=== PATIENT | female | born 1970 | race American Indian/Alaskan Native ===

== ENCOUNTER 2023-12-30 15:04 | Emergency (ER) | payer OTHER, SELFPAY ==
[2023-12-30] VITALS (19 sets, daily range): BP systolic 127–149; BP diastolic 78–101; PULSE 65–89; RESP 11–25; TEMP 37.2; O2SAT 95–100
--- NOTE | ~2023-12-30 | CT_ITS ---
CT abdomen pelvis wo con Ordering provider: Cinthia Barrios PA-C History: 53 years Female with . abd pain, N/V, recent hernia repair/bowel obst . Comparison: September 02, 2013 Technique: CT abdomen and pelvis without IV and without oral contrast. Radiation reduction technique utilized. The DLP is 216.78 mGy. Findings: VISUALIZED LOWER CHEST: Right lower lobe nodule laterally measuring 5 mm. Otherwise normal. UPPER ABDOMINAL ORGANS: Liver: Slight hepatomegaly. Gallbladder: Status post cholecystectomy. Spleen: Normal. Stomach/duodenum: Normal. Pancreas: Normal. Adrenals: Normal. Kidneys: Normal. PELVIC ORGANS: The bladder is normal. BOWEL AND MESENTERY: Colon: No evidence of diverticulitis. Fecal material is loaded in the colon suggestive of constipatio n. Status post cholecystectomy. Small Bowel: Normal. No obstruction. Peritoneum/mesentery: No free air or free fluid. No mesenteric lymphadenopathy. RETROPERITONEUM: Mild atheromatous disease of the abdominal aorta. No retroperitoneal lymphadenopat hy. MUSCULOSKELETAL: Superficial soft tissues: Postoperative changes in the area of the umbilicus with minimal fluid colle ction and air bubble measuring 3.6 x 0.7 cm. otherwise, The superficial soft tissues are normal. Bones: Normal spine. IMPRESSION: 1. Right lower lobe nodule unchanged from previous examination. 2. Postoperative changes in the area of the umbilicus with a small collection. Abscess is possible. 3. Constipation. 4. Hepatomegaly. Reviewed, dictated and finalized at location A.
[2023-12-30 15:35] LABS: Basophils Percent Auto 0.5 % (0.2-1.2); Eosinophils Absolute Auto 0.2 K/mm3 (0-0.3); Hematocrit 34.9 % (37.0-47.0); Hemoglobin 11.3 g/dL (12.0-15.0); Immature Granulocyte Absolute 0.03 K/mm3 (0.00-0.031); Immature Granulocyte Percent A 0.5 % (0-0.5); Lymphocytes Absolute Auto 1.29 K/mm3 (0.9-3.2); Lymphocytes Percent Auto 23.1 % (18.3-44.2); Mean Corpuscular HGB Conc 32.4 g/dl (32-36); Mean Corpuscular Hemoglobin 29.4 pg (26-34); Mean Corpuscular Volume 90.6 fl (80-100); Mean Platelet Volume 9.8 fl (7.4-10.4); Monocytes Absolute Auto 0.3 K/mm3 (0.1-0.6); Monocytes Percent Auto 5.4 % (2.6-8.5); Neutrophils Absolute Auto 3.8 K/mm3 (1.3-6.7); Neutrophils Percent Auto 67.5 % (45.5-73.1); Platelet Count Result 300 k/mm3 (150-375); Red Blood Count 3.85 M/mm3 (4.2-5.4); White Blood Count 5.6 K/mm3 (4.5-10.0)
[2023-12-30 15:52] LABS: Appearance Urine Clear (Clear); Bilirubin Urine Negative (Negative); Blood Urine Negative (Negative); Color Urine Yellow (Yellow); Glucose Urine UA Negative (Negative); Ketones Urine Trace mg/dL (Negative); Leukocyte Esterase Ur Negative LEU/UL (Negative); Nitrate Urine Negative (Negative); Protein Urine Negative (Negative); Specific Grav Ur 1.024 (1.001-1.035); Urobilinogen Urine 0.2 mg/dL (<2.0); pH Urine 6.5 (5.0-9.0)
[2023-12-30 15:53] LABS: Add Urine Microscopic? NO
[2023-12-30 15:56] LABS: Alanine Aminotransferase 8 U/L (6-35); Albumin Level 3.8 g/dL (3.5-5.1); Alkaline Phosphatase 71 U/L (38-126); Anion Gap 5 mmol/L (4-12); Aspartate Amino Transferase 29 U/L (14-36); Bilirubin,Total 0.4 mg/dL (0.2-1.3); Blood Urea Nitrogen 16 mg/dL (7-17); Calcium 8.5 mg/dL (8.4-10.2); Carbon Dioxide 28 mmol/L (22-30); Chloride 105 mmol/L (98-107); Estimated CRCL calculation 57 ml/min; Estimated Glomerular Filt Rate > 60; Glucose 127 mg/dL (65-110); Lipase 58 U/L (23-300); Potassium 4.1 mmol/L (3.4-5.0); Sodium 138 mmol/L (137-145)
[2023-12-30] MEDS: SODIUM CHLORIDE 0.9% IV 1,000 ML 999 ML IV CONT (16:21)
--- NOTE | 2023-12-30 16:23 | PC.NURSE ---
Pt stated having more than 4mg of zofran in 6 hours will give her a headache. Pt refuses zofran.
[2023-12-30 16:38] LABS: Lactic Acid Reflex 0.9 mmol/L (0.7-2.0)
--- NOTE | 2023-12-30 17:19 | ED.ABDPAIN ---
HPI - Abdominal Pain General Chief Complaint: Abdominal Pain <SATHYA Chisholm Last Filed: 12/30/23 19:31> Stated Complaint: abd pain <SATHAY Chisholm Last Filed: 12/30/23 19:31> Time Seen by Provider: 12/30/23 15:10 <Cinthia Barrios PA-C - Last Filed: 12/30/23 19:31> Source: patient <SATHYA Chisholm Last Filed: 12/30/23 19:31> Mode of arrival: EMS <SATHYA Chisholm Last Filed: 12/30/23 19:31> Limitations: no limitations <SATHYA Chisholm Last Filed: 12/30/23 19:31> History of Present Illness HPI narrative: Patient is a 53-year-old female who presents the ED via EMS with report of abdominal pain. Patient is a poor historian. She reports she had abdominal surgery last week performed by Dr. Wright at [facility] which she reports included having her feeding tube removed, hernia repair, repair of bowel obstruction. Patient reports having ongoing abdominal pain since the surgery, states became worse today. Is prescribed oxycodone for pain. She has been able to eat and drink, but reports nausea, constipation. States her last bowel movement was at the hospital prior to her discharge. Patient reports she was recently on palliative/hospice care, but is no longer on this?. Reports she has had issues with her recently and refuses to go back home to him. Per records, patient was admitted at [facility] 12/14-12/24. Had incisional hernia repair 12/21. <SATHYA Chisholm Last Filed: 12/30/23 19:31> Related Data Home Medications: Home Medications Medication Instructions Recorded Confirmed aloe vera 5,000 mg capsule 5,000 mg PO DAILY 10/03/22 08/20/23 aluminum-mag hydroxide-simethicone 5 ml PO QID PRN 10/03/22 08/20/23 400 mg-400 mg-40 mg/5 mL oral susp (Mylanta Maximum Strength) bisacodyl 5 mg tablet,delayed 10 mg PO DAILY PRN 10/03/22 08/20/23 release diphenhydramine HCl 25 mg capsule 50 mg PO QHS PRN 10/03/22 08/20/23 (Benadryl) docusate sodium 100 mg capsule 100 mg PO BID 10/03/22 08/20/23 glucose 4 gram chewable tablet 16 g PO .q6hr PRN 10/03/22 08/20/23 naloxone 4 mg/actuation nasal spray 4 mg intranasal Q2M PRN 10/03/22 08/20/23 ondansetron HCl 4 mg tablet 4 mg PO Q6H PRN 10/03/22 08/20/23 oxycodone 15 mg tablet 45 mg PO .q3hr PRN 10/03/22 08/20/23 alprazolam 2 mg tablet (Xanax) 2 mg PO .COMPLEX PRN 08/20/23 08/20/23 fentanyl 100 mcg/hr transdermal 1 patch transdermal Q72H 08/20/23 08/20/23 patch furosemide 20 mg tablet 20 mg PO DIRECTED 08/20/23 08/20/23 levothyroxine 100 mcg tablet 100 mcg PO DAILY 08/20/23 08/20/23 (Synthroid) <Cinthia Barrios PA-C - Last Filed: 12/30/23 19:31> Allergies/Adverse Reactions: Allergies Allergy/AdvReac Type Severity Reaction Status Date / Time metoclopramide [From Reglan] Allergy Severe Agitated Verified 08/20/23 13:32 ibuprofen Allergy Intermediate throat Verified 08/20/23 13:32 swelling morphine Allergy Intermediate Rash Verified 08/20/23 13:32 haloperidol [From Haldol] AdvReac Severe Agitated Verified 08/20/23 13:32 Sulfa (Sulfonamide AdvReac Intermediate Nausea Verified 08/20/23 13:32 Antibiotics) IVContrast Allergy Severe Anaphylaxis Uncoded 08/20/23 13:32 <Cinthia Barrios PA-C - Last Filed: 12/30/23 19:31> Review of Systems Review of Systems: CONSTITUTIONAL: Denies fever, chills, or sweats. GASTROINTESTINAL: See HPI. GENITOURINARY: Denies dysuria or hematuria. <Cinthia Barrios PA-C - Last Filed: 12/30/23 19:31> All systems reviewed & are unremarkable except as noted in HPI and below <Cinthia Barrios PA-C - Last Filed: 12/30/23 19:31> [facility] Past Medical History Medical History: Medical History Abnormal heart rate Anemia B12 deficiency Chronic abdominal pain Encounter for attention to other artificial openings of dige
[2023-12-30] MEDS: fentaNYL CITRATE INJ (*CRX) 100 MCG/2 ML VIAL 25 MCG IV PUSH (17:51)
--- NOTE | 2023-12-30 19:23 | PC.NURSE ---
Tristen with [facility] transfer center called for traige information regarding patient. She states she will call back with the hospitalist to talk to provider.
[2023-12-30] MEDS: LORazepam INJ (*CRX) 2 MG/ML VIAL 0.5 MG IV PUSH (19:39)
[2023-12-30] MEDS: ONDANSETRON INJ 4 MG/2 ML VIAL IV PUSH (21:23)
[2023-12-30] MEDS: PIPERACILLN/TAZ 3.375GM/NS50ML 3.375 GM/50 ML BAG IVPB (21:23)
--- NOTE | 2023-12-30 21:29 | PC.NURSE ---
Pt c/o increased pain. EDP made aware.
[2023-12-30] MEDS: HYDROmorphone HCL INJ (*CRX) 1 MG/ML SYR 0.5 MG IV PUSH (22:35)
[2023-12-31] VITALS (33 sets, daily range): BP systolic 121–160; BP diastolic 67–120; PULSE 68; RESP 16; O2SAT 94–100
--- NOTE | 2023-12-31 00:58 | PC.NURSE ---
vrzia louise to give 1mg dilaudid
[2023-12-31] MEDS: HYDROmorphone HCL INJ (*CRX) 1 MG/ML SYR IV PUSH ×2 (01:01→04:09)
--- NOTE | 2023-12-31 04:03 | PC.NURSE ---
tusharbo dilaudid 1mg ivp per erp dani
[2023-12-31] MEDS: PIPERACILLN/TAZ 3.375GM/NS50ML 3.375 GM/50 ML BAG IVPB (04:12)
--- NOTE | 2023-12-31 05:44 | PC.NURSE ---
[facility] transfer Center Update - most recent vs given. [facility] Room 2660-A . Report [phone] .
[2023-12-31] MEDS: ACETAMINOPHEN 500 MG TABLET 1000 MG PO (08:18)
--- NOTE | 2023-12-31 09:08 | PC.NURSE ---
This RN called [facility] and updated Surgical floor, room 2660 A, patient is on her way. Report called prior by night RN Jennifer to [facility]. IV intact.
== END 2023-12-31 09:02 | disposition short-term general hospital (02) ==
PROVIDERS: Emergency Provider Physician Assistant; PCP Nurse Practitioner Family
DX: K91.89 Other postprocedural complications and disorders of digestive system (principal); K59.00 Constipation, unspecified; D64.9 Anemia, unspecified; E53.8 Deficiency of other specified B group vitamins; K58.9 Irritable bowel syndrome, unspecified; M32.9 Systemic lupus erythematosus, unspecified; M81.0 Age-related osteoporosis without current pathological fracture; F17.210 Nicotine dependence, cigarettes, uncomplicated; Z98.84 Bariatric surgery status; Z90.49 Acquired absence of other specified parts of digestive tract; R91.1 Solitary pulmonary nodule; R16.0 Hepatomegaly, not elsewhere classified; Y83.8 Other surgical procedures as the cause of abnormal reaction of the patient, or of later complication, without mention of misadventure at the time of the procedure
CPT/HCPCS: 36415; 74176; 80053; 81003; 83605; 83690; 85025; 87040; 96361; 96365; 96375; 96376; 99285; A9270; J1170; J2060; J2405; J2543; J3010; J7030

== ENCOUNTER 2024-05-03 13:53 | Emergency (ER) | payer OTHER, SELFPAY ==
[2024-05-03] VITALS (12 sets, daily range): BP systolic 119–178; BP diastolic 81–103; PULSE 64–98; RESP 11–18; TEMP 36.3–36.6; O2SAT 98–100
--- NOTE | ~2024-05-03 | CT_ITS ---
EXAMINATION: CT abdomen pelvis wo con DATE: 05/03/2024 15:49 INDICATION: Abdominal pain TECHNIQUE: Computed tomography (CT) of the abdomen and pelvis was performed without intravenous contr ast. Automated exposure control and iterative reconstruction technique were employed. The dose-length product was 227.59 mGy-cm. COMPARISON: 12/30/2023 FINDINGS: Chronic 4 mm subpleural granuloma in the right lower lobe. Lung bases are otherwise clear. Heart size is normal. No pericardial or pleural effusion. Persistent small amount of gas at the left enoc hepa tis. Additional more remote free intraperitoneal gas and would favor pneumobilia potentially related to prior cholecystectomy and sphincterotomy with the gallbladder not visualized. Liver is otherwise u nremarkable. Spleen, pancreas, bilateral adrenal glands and kidneys are normal. Moderate amount of sc attered colonic stool. Small bowel anastomosis in the left lower quadrant. Additional postoperative c hanges near the tip the cecum with nonvisualized appendix suggesting prior appendectomy. No abnormal bowel wall thickening or obstruction. Bladder is normal. The uterus is not identified and has likely been surgically resected. No abscess or free intraperitoneal fluid. No pathologically enlarged abdomi nal or pelvic lymphadenopathy. Chronic L5 spondylolysis with bilateral pars interarticularis defects and 3 mm anterolisthesis on S1. IMPRESSION: 1. Small amount of gas in the left enoc hepatis with no other more remote extra alimentary gas in th e abdomen or pelvis to suggest free intraperitoneal gas and would favor pneumobilia related to prior cholecystectomy and possible sphincterotomy. No other acute intra-abdominal/pelvic process. Reviewed, dictated and finalized at location A. IMPRESSION: 1. Small amount of gas in the left enoc hepatis with no other more remote extr a alimentary gas in the abdomen or pelvis to suggest free intraperitoneal gas a nd would favor pneumobilia related to prior cholecystectomy and possible sphinc terotomy. No other acute intra-abdominal/pelvic process.
[2024-05-03 14:34] LABS: Basophils Percent Auto 0.4 % (0.2-1.2); Eosinophils Percent Auto 0.6 % (0-4.4); Immature Granulocyte Absolute 0.02 K/mm3 (0.00-0.031); Immature Granulocyte Percent A 0.4 % (0-0.5); Lymphocytes Percent Auto 27.1 % (18.3-44.2); Mean Corpuscular HGB Conc 34.2 g/dl (32-36); Mean Corpuscular Hemoglobin 30.2 pg (26-34); Mean Corpuscular Volume 88.2 fl (80-100); Mean Platelet Volume 9.8 fl (7.4-10.4); Monocytes Absolute Auto 0.4 K/mm3 (0.1-0.6); Monocytes Percent Auto 8.8 % (2.6-8.5); Neutrophils Percent Auto 62.7 % (45.5-73.1); Platelet Count Result 205 k/mm3 (150-375); Red Blood Count 4.31 M/mm3 (4.2-5.4); Red Cell Distribution Width 12.4 % (11.5-14.5); White Blood Count 4.8 K/mm3 (4.5-10.0)
[2024-05-03 14:40] LABS: INR 0.9; Prothrombin Time 12.8 Seconds (11.1-14.7)
[2024-05-03 14:41] LABS: Partial Thromboplastin Time 22.9 Seconds (22.3-36.8)
[2024-05-03 14:43] LABS: Alanine Aminotransferase 9 U/L (6-35); Albumin Level 4.6 g/dL (3.5-5.1); Alkaline Phosphatase 84 U/L (38-126); Anion Gap 10 mmol/L (4-12); Aspartate Amino Transferase 21 U/L (14-36); Bilirubin,Total 0.3 mg/dL (0.2-1.3); Blood Urea Nitrogen 9 mg/dL (7-17); Calcium 9.3 mg/dL (8.4-10.2); Carbon Dioxide 25 mmol/L (22-30); Chloride 103 mmol/L (98-107); Estimated CRCL calculation 63 ml/min; Estimated Glomerular Filt Rate > 60; Glucose 109 mg/dL (65-110); Potassium 3.7 mmol/L (3.4-5.0); Sodium 138 mmol/L (137-145)
[2024-05-03 15:01] LABS: Glucose Point of Care 93 mg/dl (65-105)
[2024-05-03 15:05] LABS: Add Urine Microscopic? YES; Appearance Urine Clear (Clear); Bacteria Urine Rare /hpf; Bilirubin Urine Negative (Negative); Blood Urine Negative (Negative); Color Urine Yellow (Yellow); Glucose Urine UA Negative (Negative); Ketones Urine Trace mg/dL (Negative); Leukocyte Esterase Ur Negative LEU/UL (Negative); Nitrate Urine Negative (Negative); Non Pathogenic Casts 0-2; Protein Urine Trace mg/dL (Negative); RBC Urine 0-2 /hpf (0-2); Specific Grav Ur 1.021 (1.001-1.035); Squamous Epithelial Cell Urine Many /hpf (Few); WBC Urine 0-5 /hpf (0-3); pH Urine 5.5 (5.0-9.0)
--- NOTE | 2024-05-03 15:15 | ED.GENADULT ---
HPI - General Adult General Chief complaint: Recheck/Abnormal Lab/Rx Stated complaint: LOW BLOOD SUGAR Time Seen by Provider: 05/03/24 13:54 History of Present Illness HPI narrative: 53-year-old female presenting to the emergency department for evaluation for hypoglycemia. Patient does have history of pancreatic dysfunction and has increased insulin production. Related Data Home Medications Medication Instructions Recorded Confirmed aloe vera 5,000 mg capsule 5,000 mg PO DAILY 10/03/22 08/20/23 aluminum-mag hydroxide-simethicone 5 ml PO QID PRN 10/03/22 08/20/23 400 mg-400 mg-40 mg/5 mL oral susp (Mylanta Maximum Strength) bisacodyl 5 mg tablet,delayed 10 mg PO DAILY PRN 10/03/22 08/20/23 release diphenhydramine HCl 25 mg capsule 50 mg PO QHS PRN 10/03/22 08/20/23 (Benadryl) docusate sodium 100 mg capsule 100 mg PO BID 10/03/22 08/20/23 glucose 4 gram chewable tablet 16 g PO .q6hr PRN 10/03/22 08/20/23 naloxone 4 mg/actuation nasal spray 4 mg intranasal Q2M PRN 10/03/22 08/20/23 ondansetron HCl 4 mg tablet 4 mg PO Q6H PRN 10/03/22 08/20/23 oxycodone 15 mg tablet 45 mg PO .q3hr PRN 10/03/22 08/20/23 alprazolam 2 mg tablet (Xanax) 2 mg PO .COMPLEX PRN 08/20/23 08/20/23 fentanyl 100 mcg/hr transdermal 1 patch transdermal Q72H 08/20/23 08/20/23 patch furosemide 20 mg tablet 20 mg PO DIRECTED 08/20/23 08/20/23 Allergies Allergy/AdvReac Type Severity Reaction Status Date / Time metoclopramide [From Reglan] Allergy Severe Agitated Verified 08/20/23 13:32 ibuprofen Allergy Intermediate throat Verified 08/20/23 13:32 swelling morphine Allergy Intermediate Rash Verified 08/20/23 13:32 haloperidol [From Haldol] AdvReac Severe Agitated Verified 08/20/23 13:32 Sulfa (Sulfonamide AdvReac Intermediate Nausea Verified 08/20/23 13:32 Antibiotics) IVContrast Allergy Severe Anaphylaxis Uncoded 08/20/23 13:32 Review of Systems Review of Systems: All systems reviewed & are unremarkable except as noted in HPI and below PMFSH Past Medical History Medical History Abnormal heart rate Anemia B12 deficiency Chronic abdominal pain Encounter for attention to other artificial openings of digestive tract History of anemia IBS (irritable bowel syndrome) Lupus Osteoporosis Pancreatic divisum Seasonal allergies Shakiness Shortness of breath Unspecified severe protein-calorie malnutrition Urinary frequency Viral exanthem Surgical History Surgical History H/O colonoscopy H/O oophorectomy H/O: hysterectomy History of esophagogastroduodenoscopy (EGD) History of Colleen-en-Y gastric bypass Hx of appendectomy Hx of cholecystectomy Family History Family History Father Brain cancer Mother Cervical cancer Grandparent Anxiety Depression Heart disease Grandparent Depression Anxiety Heart disease Thyroid disease Other Anemia Arthritis Chronic pain Diabetes mellitus Hypertension Social History Social History Smoking packs per day: 1 Smoking cigarettes per day: 20.0 Years smoked: 28 Smoking pack-years: 28.00 Smoking status: Current every day smoker Alcohol intake: never Substance use: never Substance use type: does not use Exam Narrative: APPEARANCE: Well appearing, no pain, no distress, well-nourished. HEAD: normocephalic, atraumatic. EYES: PERRLA/EOMI, conjunctivae clear. NOSE: Normal no drainage EARS:TMS clear with good light reflex. THROAT: Pharynx clear, no exudate. NECK: Supple. No adenopathy, no masses. RESPIRATORY: Airway patent, respirations nonlabored. Clear to auscultation bilaterally, no rales, rhonchi, wheezing. CARDIOVASCULAR: Regular rate and rhythm without murmurs rubs or gallops. ABDOMINAL: Soft, nontender, nondisten
[2024-05-03 15:33] LABS: Glucose Point of Care 161 mg/dl (65-105)
[2024-05-03 17:30] LABS: Glucose Point of Care 109 mg/dl (65-105)
[2024-05-03] MEDS: ONDANSETRON INJ 4 MG/2 ML VIAL IV PUSH (17:40)
[2024-05-03] MEDS: ONDANSETRON INJ 4 MG/2 ML VIAL (17:40)
== END 2024-05-03 18:36 | disposition home or self-care (01) ==
PROVIDERS: Emergency Provider Emergency Medicine; PCP Nurse Practitioner Family
DX: E16.2 Hypoglycemia, unspecified (principal); R10.9 Unspecified abdominal pain; G89.29 Other chronic pain; M32.9 Systemic lupus erythematosus, unspecified; R94.8 Abnormal results of function studies of other organs and systems; D64.9 Anemia, unspecified
CPT/HCPCS: 36415; 74176; 80053; 81001; 82948; 85025; 85610; 85730; 96374; 99284; J2405; J2765